=== PATIENT | female | born 1995 | race Caucasian/White ===

== ENCOUNTER 2017-08-16 07:56 | Emergency (ER) | payer OTHER ==
[~2017-08-16] VITALS: Ht 157.5 cm; Wt 72.5 kg
[2017-08-16] MEDS ORDERED: IBUPROFEN 600 MG TABLET PO ONE (08:15)
[2017-08-16 09:14] VITALS: BP 116/77
== END 2017-08-16 09:16 | disposition home or self-care (01) ==
LOC: EMS 07:57
DX: J18.0 Bronchopneumonia, unspecified organism (principal)
CPT/HCPCS: 71020; 99284

== ENCOUNTER 2017-09-16 16:34 | Emergency (ER) | payer OTHER ==
[~2017-09-16] VITALS: Ht 157.5 cm; Wt 72.7 kg
[2017-09-16] MEDS ORDERED: HYDR-3290 PO (16:42)
[2017-09-16] MEDS ORDERED: AMOX500C2 PO (16:42)
[2017-09-16] MEDS ORDERED: IBUP-2071 PO (16:42)
[2017-09-16] MEDS ORDERED: KETOROLAC TROMETHAMINE 60 MG/2 ML VIAL IM ONE (18:00)
[2017-09-16 19:08] VITALS: BP 132/80
== END 2017-09-16 19:11 | disposition home or self-care (01) ==
LOC: EMS 16:35
DX: K08.89 Other specified disorders of teeth and supporting structures (principal)
CPT/HCPCS: 96372; 99283; J1885